=== PATIENT | male | born 1980 | race African-American/Black ===

== ENCOUNTER 2022-12-13 08:36 | Emergency (ER) | payer MEDICAID, OTHER ==
[~2022-12-13] VITALS: Ht 182.9 cm; Wt 127.3 kg
[~2022-12-13 08:36] MED LIST: CETI-450 PO; LISI-893 PO; MONT-35 PO
[2022-12-13] MEDS ORDERED: KETOROLAC TROMETHAMINE 60 MG/2 ML VIAL IM ONE (09:45)
[2022-12-13] MEDS ORDERED: IBUP-1492 PO (10:16)
[2022-12-13 10:34] VITALS: BP 138/88
== END 2022-12-13 12:48 | disposition home or self-care (01) ==
LOC: EMS 08:36
DX: S16.1XXA Strain of muscle, fascia and tendon at neck level, initial encounter (principal); J45.909 Unspecified asthma, uncomplicated; I10 Essential (primary) hypertension; Z98.890 Other specified postprocedural states; V89.2XXA Person injured in unspecified motor-vehicle accident, traffic, initial encounter; Y93.89 Activity, other specified; Y92.89 Other specified places as the place of occurrence of the external cause; Y99.8 Other external cause status
CPT/HCPCS: 99283; 96372; J1885